=== PATIENT | female | born 1955 ===

== ENCOUNTER → 2016-07-07 | Outpatient (CLI) | payer BC ==
--- NOTE | 2016-08-14 16:16 | Diagnostic Imaging Report ---
Indications: Dysphagia Technique: Biphasic barium esophagram was performed with air contrast under fluoroscopic control. Video, spot film, and overhead imaging performed. Video and spot film images lost and unavailable for interpretation. Total fluoroscopy time: 0.5 minutes. Dose area product: Data lost, not reportable Findings: Comparison: None Only static images of the entire esophagus opacified by contrast in 4 projections available for comparison. The entire thoracic esophagus is well opacified, normal in caliber and configuration. No evidence of mass/mucosal change, stricture, dilation, obstruction, extravasation, significant extrinsic mass effect, or other abnormality. Motility, presence or absence of gastroesophageal reflux cannot be evaluated on these images. IMPRESSION: Incomplete examination due to loss of imaging performed. Unavailable images demonstrate no structural abnormalities of the esophagus. Examination nondiagnostic for motility disorder, reflux.
== END | disposition home or self-care (01) ==
LOC: RAD 09:03
DX: R10.9 Unspecified abdominal pain (principal); K21.9 Gastro-esophageal reflux disease without esophagitis
CPT/HCPCS: 74220